=== PATIENT | male | born 1970 | race Caucasian/White ===

== ENCOUNTER 2021-02-13 20:00 | Outpatient (CLI) | payer OTHER, SELFPAY | END 2021-02-13 20:01 | disposition home or self-care (01) | LOC: SLEEP 02-14 06:27 | PROVIDERS: Visit Provider Family Medicine | DX: G47.10 Hypersomnia, unspecified (principal); R06.83 Snoring; R53.83 Other fatigue; G47.33 Obstructive sleep apnea (adult) (pediatric) | CPT/HCPCS: 95810 ==

== ENCOUNTER 2021-04-12 20:00 | Outpatient (CLI) | payer OTHER, SELFPAY | END 2021-04-12 20:01 | disposition home or self-care (01) | LOC: SLEEP 04-13 05:36 | PROVIDERS: Visit Provider Family Medicine | DX: G47.33 Obstructive sleep apnea (adult) (pediatric) (principal) | CPT/HCPCS: 95811 ==

== ENCOUNTER → 2021-07-01 14:49 | Outpatient (BNVA) | payer OTHER, SELFPAY | PROVIDERS: Visit Provider Nurse Practitioner Family | DX: Z20.822 Contact with and (suspected) exposure to COVID-19 (principal) | CPT/HCPCS: 87635 ==

== ENCOUNTER 2022-05-22 14:02 | Outpatient (CLI) | payer OTHER, SELFPAY ==
[2022-05-22 16:42] LABS: Viscosity Semen High Viscosity
[2022-05-22 16:43] LABS: White Blood Count Semen 0-4 /hpf
== END 2022-05-22 14:03 | disposition home or self-care (01) ==
LOC: LAB 14:22
PROVIDERS: Visit Provider Specialist
DX: Z31.42 Aftercare following sterilization reversal (principal)
CPT/HCPCS: 80503; 89320